=== PATIENT | female | born 1995 | race Caucasian/White ===

== ENCOUNTER → 2016-10-30 | Outpatient (CLI) | payer BC ==
[~2016-10-30] MED LIST: BCPILLS PO; CYPR4TAB31 PO; HYOS0.1255 PO; LOSA1TAB PO
== END | disposition home or self-care (01) ==
LOC: C.LABSPEC 15:35
PROVIDERS: ATTEND Obstetrics & Gynecology
DX: N89.8 Other specified noninflammatory disorders of vagina (principal)

== ENCOUNTER → 2018-05-12 | Outpatient (CLI) | payer OTHER ==
[~2018-05-12] MED LIST changes: +CYPR4TAB PO; -CYPR4TAB31 PO
--- NOTE | 2018-05-12 09:49 | DIAGNOSTIC IMAGING REPORT ---
SOFT TISS HEAD/NECK-THYROID CLINICAL HISTORY: 22 years-old Female presenting with THYROMEGALY. TECHNIQUE: Real-time grayscale and color Doppler ultrasound imaging of the thyroid and base of the neck was performed. COMPARISON: None. FINDINGS: Right lobe: Normal echogenicity and echotexture. The right lobe of the thyroid measures 4.3 x 1.4 x 1.6 cm. No parenchymal hyperemia. No nodules. Left lobe: Normal echogenicity and echotexture. The left lobe of the thyroid measures 4.2 x 1.3 x 1.3 cm. No parenchymal hyperemia. No nodules. Isthmus: The isthmus measures 4 mm in thickness. No parenchymal hyperemia. No nodules. IMPRESSION: Normal thyroid ultrasound. Electronically signed by: Ramiro Blake M.D. 05/12/2018 9:48 AM Dictated Date/Time: 05/12/2018 9:48 AM
== END | disposition home or self-care (01) ==
LOC: C.ULTR 09:27
PROVIDERS: ATTEND Nurse Practitioner
DX: Z83.49 Family history of other endocrine, nutritional and metabolic diseases (principal); R00.0 Tachycardia, unspecified